=== PATIENT | female | born 1935 | race African-American/Black ===

== ENCOUNTER 2017-12-27 16:22 | Emergency (ER) | payer OTHER ==
[~2017-12-27] VITALS: Ht 170.2 cm; Wt 80.0 kg
[2017-12-27 16:28] VITALS: BP 164/90
== END 2017-12-27 20:35 | disposition left against medical advice (07) ==
LOC: ER 16:50
DX: M79.602 Pain in left arm (principal); Z53.21 Procedure and treatment not carried out due to patient leaving prior to being seen by health care provider